=== PATIENT | male | born 1975 | race Caucasian/White ===

== ENCOUNTER 2017-12-18 21:29 | Emergency (ER) | payer SELFPAY ==
--- NOTE | 2017-12-18 22:32 | ED PDOC ---
HPI: Psych/Substance Abuse Time Seen by Provider: 12/18/17 21:37 Chief Complaint (Nursing): Substance Abuse Chief Complaint (Provider): Substance Abuse History Per: Patient History/Exam Limitations: no limitations Current Symptoms Are (Timing): Still Present Additional Complaint(s): 42 year old male presents to the emergency department via EMS after brought in for possible intoxication. Brought by [facility] after police responded to a call and found patient to be unarousable and parked outside of a back with car on and asleep. As per responders, patient does appear to be under the influence. States he was very tired because he was unable to check into a hotel last night due to her credit card being declined. Denies drug abuse. Past Medical History Reviewed: Historical Data, Nursing Documentation, Vital Signs Vital Signs: Last Vital Signs Temp 98.5 F 12/18/17 21:35 Pulse 81 12/18/17 21:35 Resp 16 12/18/17 21:35 BP 138/80 12/18/17 21:35 Pulse Ox 96 12/18/17 21:35 - Medical History PMH: No Chronic Diseases - Surgical History Surgical History: No Surg Hx - Family History Family History: States: Unknown Family Hx - Social History Current smoker - smoking cessation education provided: No Alcohol: None Drugs: Denies - Allergies Allergies/Adverse Reactions: Allergies Allergy/AdvReac Type Severity Reaction Status Date / Time shrimp Allergy RASH Verified 12/18/17 21:34 Review of Systems ROS Statement: Except As Marked, All Systems Reviewed And Found Negative (As per HPI, otherwise negative) Physical Exam - Reviewed Nursing Documentation Reviewed: Yes Vital Signs Reviewed: Yes - Physical Exam Appears: Positive for: No Acute Distress Head Exam: Positive for: NORMAL INSPECTION Skin: Positive for: Normal Color, Warm, Dry Eye Exam: Positive for: Normal appearance, PERRL (3 mms bilaterally) Cardiovascular/Chest: Positive for: Regular Rate, Rhythm. Negative for: Murmur Respiratory: Positive for: Normal Breath Sounds. Negative for: Accessory Muscle Use, Respiratory Distress Gastrointestinal/Abdominal: Positive for: Normal Exam, Soft. Negative for: Tenderness Extremity: Positive for: Normal ROM. Negative for: Pedal Edema Neurologic/Psych: Positive for: Alert (somnolent but easily arousable and conversive), Oriented (x3) - Laboratory Results Result Diagrams: 12/18/17 22:35 12/18/17 22:35 - ECG O2 Sat by Pulse Oximetry: 96 (RA) Pulse Ox Interpretation: Normal Medical Decision Making Medical Decision Making: Time: 2147 Initial impression: Brought in for evaluation for possible alcohol vs drug intoxication. Patient agreeable to labs. Initial plan: Alcohol Serum CMP Drug Screen, Urine AccuCheck Reevaluation 06:24 -Patient is awake, alert and oriented. Pt is easily arousable and medically stable for discharge. Scribe Attestation: Documented by Sulema Urena, acting as a scribe for Santo Astorga MD Provider Scribe Attestation: All medical record entries made by the Scribe were at my direction and personally dictated by me. I have reviewed the chart and agree that the record accurately reflects my personal performance of the history, physical exam, medical decision making, and the department course for this patient. I have also personally directed, reviewed, and agree with the discharge instructions and disposition. Disposition - Clinical Impression Clinical Impression: Amphetamine abuse - Disposition Disposition: Routine/Home Disposition Time: 06:24 Condition: STABLE Instructions: Drug Abuse Treatment Forms: [employer] (Serbian)
[2017-12-18 22:47] LABS: BASO # 0.1 K/uL (0.0-0.2); BASO % 1.1 % (0.0-2.0); EOS # 0.4 K/uL (0.0-0.7); EOS % 5.9 % (0.0-4.0); HEMOGLOBIN 11.8 g/dL (12.0-18.0); LYMPH # 1.4 K/uL (1.0-4.3); LYMPH % 19.6 % (20.0-40.0); MEAN CELL VOLUME 80.4 fl (80.0-94.0); MEAN CORPUSCULAR HEMOGLOBIN 25.4 pg (27.0-31.0); MEAN CORPUSCULAR HGB CONC 31.6 g/dL (33.0-37.0); MONO # 0.7 K/uL (0.0-0.8); MONO % 10.6 % (0.0-10.0); NEUT # 4.4 K/uL (1.8-7.0); NEUT % 62.8 % (50.0-75.0); RBC 4.66 Mil/uL (4.40-5.90); RED CELL DISTRIBUTION WIDTH 15.7 % (11.5-14.5)
[2017-12-18 22:54] LABS: ALBUMIN 4.1 g/dL (3.5-5.0); ALT/SGPT 35 U/L (21-72); AST/SGOT 27 U/L (17-59); BLOOD UREA NITROGEN 14 mg/dl (9-20); GFR AFRICAN-AMERICAN > 60; GFR NON-AFRICAN AMERICAN > 60
[2017-12-18 23:09] LABS: BARBITURATES, UR NEGATIVE (NEGATIVE); BENZODIAZEPINES, UR NEGATIVE (NEGATIVE); OPIATES, UR NEGATIVE (NEGATIVE); PHENCYCLIDINE, UR NEGATIVE (NEGATIVE)
[2017-12-19 06:23] VITALS: BP 121/70; PULSE 75; RESP 16; TEMP 98.1
[2017-12-19 06:27] VITALS: O2SAT 96
== END 2017-12-19 07:00 | disposition home or self-care (01) ==
LOC: H.ER 21:29
DX: F15.10 Other stimulant abuse, uncomplicated (principal)
CPT/HCPCS: 80053; 85025; 99283; G0480